=== PATIENT | female | born 1975 | race African-American/Black ===

== ENCOUNTER 2016-08-24 12:00 | Emergency (ER) | payer OTHER ==
[~2016-08-24] VITALS: Ht 162.6 cm; Wt 86.0 kg
[~2016-08-24 12:00] MED LIST: CATATTS2; PREN-88 PO
[2016-08-24] MEDS ORDERED: CLONIDINE 0.1MG TABLET PO ONE (14:45)
[2016-08-24 15:18] LABS: BASOPHILS % 0.9 % (0.0-2.0); EOSINOPHILS % 1.3 % (0.0-5.0); HEMATOCRIT. 35.9 % (36.0-48.0); HEMOGLOBIN. 11.6 g/dL (12.0-16.0); LYMPHOCYTES % 39.4 % (20.0-50.0); MEAN CORPUSCULAR HEMOGLOBIN 24.4 pg (28.0-32.0); MEAN CORPUSCULAR VOLUME 75.9 fL (81.0-99.0); MEAN PLATELET VOLUME 8.7 fl (7.4-10.4); MONOCYTES % 5.5 % (2.0-8.0); NEUTROPHILS % 52.9 % (40.0-76.0); PLATELET 263 x1000/uL (130-400); RED BLOOD CELL COUNT 4.73 mill/uL (4.2-5.4); RED CELL DISTRIBUTION WIDTH 16.5 % (11.6-14.6)
[2016-08-24 15:22] LABS: CHLORIDE 109 mEq/L (98-107)
[2016-08-24 15:30] LABS: CARBON DIOXIDE 23 mEq/L (21-32); HCG SCREEN POSITIVE
[2016-08-24 16:42] LABS: CLARITY URINE CLOUDY (CLEAR); COLOR URINE YELLOW (YELLOW); GLUCOSE URINE NEGATIVE (NEGATIVE); KETONES URINE NEGATIVE (NEGATIVE); LEUKOCYTE ESTERASE URINE 2+ (NEGATIVE); NITRITE URINE NEGATIVE (NEGATIVE); OCCULT BLOOD URINE NEGATIVE (NEGATIVE); PROTEIN URINE NEGATIVE (NEGATIVE); SPECIFIC GRAVITY URINE 1.017 (1.005-1.030)
[2016-08-24] MEDS ORDERED: NITROFURANTOIN 100MG M/M CAPSULE PO ONE (17:30)
[2016-08-24 19:54] VITALS: BP 148/105
== END 2016-08-24 19:56 | disposition home or self-care (01) ==
LOC: ER 15:12
DX: O16.9 Unspecified maternal hypertension, unspecified trimester (principal); Z3A.00 Weeks of gestation of pregnancy not specified; O09.529 Supervision of elderly multigravida, unspecified trimester
CPT/HCPCS: 36415; 76801; 76817; 80053; 81001; 84702; 84703; 85025; 93005; 99285; Z7610

== ENCOUNTER 2018-07-09 18:31 | Emergency (ER) | payer OTHER ==
[~2018-07-09] VITALS: Ht 165.1 cm; Wt 89.0 kg
[2018-07-09] MEDS ORDERED: DEXAMETHASONE 10 MG/ML VIAL IM ONE (20:00)
[2018-07-09] MEDS ORDERED: KETOROLAC 15MG/ML VIAL IM ONE (20:00)
[2018-07-09] MEDS ORDERED: ACETAMINOPHEN 325MG TABLET PO ONE (20:00)
[2018-07-09 23:00] VITALS: BP 55/85
== END 2018-07-09 23:28 | disposition home or self-care (01) ==
LOC: ER 19:39
DX: J06.9 Acute upper respiratory infection, unspecified (principal); R51 Headache
CPT/HCPCS: 71045; 87070; 87430; 96372; 99284; J1100; J1885

== ENCOUNTER 2021-01-15 08:57 | Emergency (ER) | payer OTHER ==
[~2021-01-15] VITALS: Ht 165.1 cm; Wt 90.0 kg
[2021-01-15] MEDS ORDERED: IBUPROFEN 600MG TABLET PO ONE (09:30)
[2021-01-15] MEDS ORDERED: AMLODIPINE 5MG TABLET PO ONE ×2 (09:30→10:45)
[2021-01-15 09:52] LABS: BASOPHILS % 0.5 % (0.0-2.0); EOSINOPHILS % 1.9 % (0.0-5.0); HEMATOCRIT. 25.2 % (36.0-48.0); HEMOGLOBIN. 7.8 g/dL (12.0-16.0); MEAN CORPUSCULAR VOLUME 61.5 fL (81.0-99.0); MEAN PLATELET VOLUME 8.6 fl (7.4-10.4); MONOCYTES % 6.3 % (2.0-8.0); NEUTROPHILS % 51.3 % (40.0-76.0); PLATELET 255 x1000/uL (130-400); RED CELL DISTRIBUTION WIDTH 19.4 % (11.6-14.6)
[2021-01-15 10:01] LABS: CHLORIDE 111 mEq/L (98-107)
[2021-01-15 10:25] LABS: PLATELET ESTIMATE NORMAL
[2021-01-15 11:08] LABS: CLARITY URINE CLOUDY (CLEAR); COLOR URINE YELLOW (YELLOW); KETONES URINE NEGATIVE (NEGATIVE); LEUKOCYTE ESTERASE URINE 2+ (NEGATIVE); NITRITE URINE NEGATIVE (NEGATIVE); OCCULT BLOOD URINE NEGATIVE (NEGATIVE); PROTEIN URINE TRACE (NEGATIVE); SPECIFIC GRAVITY URINE 1.026 (1.005-1.030)
[2021-01-15] MEDS ORDERED: AMLO5TAB4 MT (12:12)
[2021-01-15] MEDS ORDERED: CEPH500C2 MT (12:12)
[2021-01-15 12:15] VITALS: BP 183/104
== END 2021-01-15 12:25 | disposition home or self-care (01) ==
LOC: ER 08:57
DX: I16.0 Hypertensive urgency (principal); N30.00 Acute cystitis without hematuria
CPT/HCPCS: 36415; 80053; 81003; 81025; 85025; 93005; 99284